=== PATIENT | female | born 1980 | race Caucasian/White ===

== ENCOUNTER 2018-05-01 03:03 | Emergency (ER) | payer SELFPAY ==
[2018-05-01] MEDS ORDERED: NACL 0.9% 1000 ML 1,000 ML IV ONE ×2 (03:55→09:59)
[2018-05-01] MEDS ORDERED: ZOFRAN IV ONE ×2 (03:56→13:48)
[2018-05-01 04:30] LABS: Basophils # (Auto) 0.1 K/mm3 (0.0-0.1); Basophils % (Auto) 1.1 % (0.0-1.8); Eosinophils # (Auto) 0.1 K/mm3 (0.0-0.4); Eosinophils % (Auto) 0.8 % (0.0-4.3); Hematocrit 40.7 % (30.3-42.9); Hemoglobin 13.5 gm/dl (10.1-14.3); Lymphocytes % (Auto) 30.6 % (13.4-35.0); Mean Corpuscular HGB Conc 33 % (30-34); Mean Corpuscular Hemoglobin 29 pg (28-32); Mean Corpuscular Volume 87 fl (79-97); Monocytes # (Auto) 0.8 K/mm3 (0.0-0.8); Monocytes % (Auto) 5.9 % (0.0-7.3); Platelet Count 304 K/mm3 (140-440); Red Blood Count 4.65 M/mm3 (3.65-5.03); Red Cell Distribution Width 13.5 % (13.2-15.2)
[2018-05-01 04:42] LABS: Alanine Aminotransferase 20 units/L (7-56); Albumin 3.9 g/dL (3.9-5); BUN/Creatinine Ratio 15; Blood Urea Nitrogen 12 mg/dL (7-17); Calcium 9.1 mg/dL (8.4-10.2); Hemolysis Index 25; Lipase 33 units/L (13-60)
[2018-05-01] MEDS ORDERED: ANTIVERT PO ONE (09:46)
--- NOTE | 2018-05-01 09:50 | Emergency Department Report ---
ED Dizziness HPI - General Chief Complaint: Nausea/Vomiting/Diarrhea Stated Complaint: SWEATING DIZZY AND SWEATING Time Seen by Provider: 05/01/18 09:43 Source: patient Mode of arrival: Ambulatory Limitations: No Limitations - History of Present Illness Initial Comments: 37-year-old female past medical history obesity presents with complaint of waking up abruptly at 2 AM feeling short of breath and dizzy and nauseous. Patient vomited several times. Denies any discrete chest pain or palpitations. Denies any recent head trauma. Denies fever or chills. Denies increased urinary frequency dysuria or hematuria. Patient adamantly denies any alcohol smoking cocaine or drug use otherwise. Patient is awake alert and oriented 3 and accompanied by . States she still feels very dizzy which she characterizes as both the room spinning and feeling off balance. Patient denies any active chest pain or palpitations at this time. Patient is fully lucid. Denies any recent head trauma. States that she had a slight from [place] 4 days ago. Denies any personal history of PE or DVT. Patient has a noticeable nystagmus when I interview her. She personal history of CVA or neurological disease. She states she was feeling fine up until approximately 2 AM when she woke up out of bed with the symptoms. Denies any change in symptoms with changes in position MD Complaint: dizziness Onset/Timin -: hour(s) Timing: sudden onset Description: sense of movement, "room spinning", lightheadedness History of Same: No History of Trauma: No Severity: moderate - Related Data Previous Rx's Medication Instructions Recorded Last Taken Type Meclizine [Antivert] 25 mg PO TID PRN #15 tablet 05/01/18 Unknown Rx Nitrofurantoin Monohyd/M-Cryst 100 mg PO BID #14 capsule 05/01/18 Unknown Rx [Macrobid 100 mg Capsule] Allergies Allergy/AdvReac Type Severity Reaction Status Date / Time No Known Allergies Allergy Unverified 05/01/18 03:54 ED Review of Systems ROS: Stated complaint: SWEATING DIZZY AND SWEATING Other details as noted in HPI Constitutional: denies: chills, fever Eyes: denies: eye pain, eye discharge, vision change ENT: denies: ear pain, throat pain Respiratory: denies: cough, shortness of breath, wheezing Cardiovascular: denies: chest pain, palpitations Endocrine: no symptoms reported Gastrointestinal: denies: abdominal pain, nausea, diarrhea Genitourinary: denies: urgency, dysuria, discharge Musculoskeletal: denies: back pain, joint swelling, arthralgia Skin: denies: rash, lesions Neurological: vertigo. denies: headache, weakness, paresthesias Psychiatric: denies: anxiety, depression Hematological/Lymphatic: denies: easy bleeding, easy bruising ED Past Medical Hx - Past Medical History Previous Medical History?: No - Surgical History Past Surgical History?: No - Social History Smoking Status: Never Smoker Substance Use Type: None - Medications Home Medications: Home Medications Medication Instructions Recorded Confirmed Last Taken Type Meclizine [Antivert] 25 mg PO TID PRN #15 tablet 05/01/18 Unknown Rx Nitrofurantoin Monohyd/M-Cryst 100 mg PO BID #14 capsule 05/01/18 Unknown Rx [Macrobid 100 mg Capsule] ED Physical Exam - General Limitations: No Limitations General appearance: alert, in no apparent distress - Head Head exam: Present: atraumatic, normocephalic - Eye Eye exam: Present: normal appearance, PERRL, EOMI, nystagmus (slight horizontal nystagmus on exam) - ENT ENT exam: Present: normal exam (tympanic membranes are normal bilaterally no signs of otitis media or externa), mucous membranes moist - Neck Neck exam: Present: normal inspection, full ROM (neck flexion and extension clinically intact no meningismus) - Respiratory Respiratory exam: Present: normal lung sounds bilaterally (lungs are clear to auscultation bilaterally). Absent: respiratory distress - Cardiovascular Cardiovascular Exam: Present: regular rate, normal rhythm, normal heart sounds. Absent: systolic murmur, diastolic murmur, rubs, gallop - GI/Abdominal GI/Abdominal exam: Present: soft (abdomen soft nontender nondistended on clinical exam), normal bowel sounds - Extremities Exam Extremities exam: Present: normal inspection - Back Exam Back exam: Present: normal inspection - Neurological Exam Neurological exam: Present: alert, oriented X3, CN II-XII intact, normal gait - Expanded Neurological Exam Expanded Patient oriented to: Present: person, place, time Cranial nerves: EOM's Intact: Normal, Nystagmus: Abnormal Right, Abnormal Left ( slight horizontal nystagmus with lateral eye movement to both left and right) Cerebellar function: Finger to Nose: Normal (H and has normal cerebellar testing including [id number] Romberg and heel to mehta. Can perform all movements without difficulty. No ataxia), Heel to Mehta: Normal, Romberg: Normal Sensory exam: Upper Extremity Light Touch: Normal, Lower Extremity Light Touch: Normal Motor strength exam: RUE: 5, LUE: 5, RLE: 5, LLE: 5 Best Eye Response (Marc): (4) open spontaneously Best Motor Response (Arcadia): (6) obeys commands Best Verbal Response (Arcadia): (5) oriented [place]cadia Total: 15 - Psychiatric Psychiatric exam: Present: normal affect, normal mood - Skin Skin exam: Present: warm, dry, intact, normal color. Absent: rash ED Course Vital Signs 05/01/18 05/01/18 05/01/18 03:44 09:59 10:06 Temperature 98.1 F Pulse Rate 76 89 Respiratory 18 18 18 Rate Blood Pressure 111/73 Blood Pressure 123/63 [Left] O2 Sat by Pulse 98 96 Oximetry 05/01/18 13:24 Temperature Pulse Rate 74 Respiratory 18 Rate Blood Pressure Blood Pressure 114/90 [Left] O2 Sat by Pulse 99 Oximetry ED Medical Decision Making - Lab Data Result diagrams: 05/01/18 04:03 05/01/18 04:03 - Medical Decision Making A/P: Dizziness, vertigo, asymptomatic bacteriuria 1-urinalysis shows large leukocytes and will treat empirically with Macrobid for asymptomatic bacteriuria, urine culture sent and this may be why patient became dizzy. She has no neurological deficits on clinical exam. Cranial nerves 2, 3, 4, 5, 6, 7, 8,10, 11, 12 intact on clinical exam, patient is fully lucid awake alert and oriented 3 conversant. Denies any upper or lower extremity paresthesias and has 5/5 strength in bilateral upper and lower extremities on clinical exam. 2-d-dimer slightly elevated. Context patient's recent 20+ hour car ride CTA performed. It is negative for PE. 3-vital signs have remained stable throughout ED stay 4- patient states she feels symptomatically better after IV hydration and dose of meclizine. 5- HEART score 0. Troponin negative, EKG sinus rhythm 6- follow-up with primary care 7- case discussed with Dr. Eugene before discharge Critical care attestation.: If time is entered above; I have spent that time in minutes in the direct care of this critically ill patient, excluding procedure time. ED Disposition Clinical Impression: Dizziness, Asymptomatic bacteriuria Disposition: - TO HOME OR SELFCARE Is pt being admited?: No Does the pt Need Aspirin: No Condition: Stable Instructions: Urinary Tract Infection in Women (ED), Vertigo (ED), Dizziness ( ED) Prescriptions: Meclizine [Antivert] 25 mg PO TID PRN #15 tablet PRN Reason: Vertigo Nitrofurantoin Monohyd/M-Cryst [Macrobid 100 mg Capsule] 100 mg PO BID #14 capsule Referrals: [facility] [Provider Group] - 3-5 Days Forms: Accompanied Note, Work/School Release Form(ED) Time of Disposition: 13:39
[2018-05-01 10:14] LABS: Bacteria,Urine 2+ /HPF (Negative); Bilirubin,Urine NEG (Negative); Blood,Urine NEG (Negative); Color,Urine Yellow (Yellow); Mucus,Urine 2+ /HPF; Protein,Urine <15 mg/dL mg/dL (Negative); Urobilinogen,Urine < 2.0 mg/dL (<2.0)
[2018-05-01 10:15] LABS: HCG Qualitative,Urine Negative (Negative)
--- NOTE | 2018-05-01 11:27 | Cat Scan Report ---
CT HEAD WITHOUT CONTRAST: HISTORY: Headache, dizziness, horizontal nystagmus. TECHNIQUE: Sequential 2.5mm CT images. COMPARISON: none. FINDINGS: Cerebral Parenchyma: Within normal limits. Cerebellum: Within normal limits. Brainstem: Within normal limits. Ventricles: Normal. Sella: Normal. Extra-axial spaces: Normal. Basal Cisterns: Normal. Intracranial Hemorrhage: None. Midline Shift: None. Calvarium: Normal. Sinuses: Normal. Mastoid Air Cells: Normal. Visualized Orbits: Normal. IMPRESSION: Cranial CT scan within normal limits.
--- NOTE | 2018-05-01 12:12 | Cat Scan Report ---
CTA CHEST: HISTORY: Shortness of breath. COMPARISON: none. TECHNIQUE: Helical CT in 1.25mm intervals following IV contrast. Pulmonary embolus protocol. Sagittal and coronal reformatted images. Rotational MIP images. FINDINGS: Contrast bolus is satisfactory. No pulmonary embolus is identified. Thyroid gland: Normal. Tracheobronchial tree: Normal. Esophagus: Normal. Heart: Normal. Pericardium: Normal. Mediastinum: Normal. Lung Root: normal. Pleural Spaces: Normal. Musculoskeletal: Normal. IMPRESSION: No evidence for pulmonary embolus. Unremarkable CT chest with contrast.
[2018-05-01 13:26] VITALS: BP 114/90
== END 2018-05-01 14:28 | disposition home or self-care (01) ==
LOC: ED 03:03
DX: R82.71 Bacteriuria (principal); R42 Dizziness and giddiness; R06.02 Shortness of breath; R11.0 Nausea
CPT/HCPCS: 36415; 70450; 71275; 80053; 81001; 81025; 82550; 82962; 83690; 84484; 84703; 85025; 85379; 93005; 93010; 96361; 96374; 96376; 99284; J2405; J7030; Q9967

== ENCOUNTER 2019-02-02 08:39 | Inpatient (IN) | payer OTHER ==
[2019-02-02] MEDS ORDERED: LACTATED RINGERS 1,000 ML IV ONE (09:38)
[2019-02-02] MEDS: LACTATED RINGERS 1,000 ML IV SCH ×2 (10:50→14:20)
[2019-02-02 11:05] LABS: Bacteria,Urine 1+ /HPF (Negative); Bilirubin,Urine NEG (Negative); Blood,Urine NEG (Negative); Color,Urine Yellow (Yellow); Mucus,Urine 1+ /HPF; Protein,Urine <15 mg/dL mg/dL (Negative); Urobilinogen,Urine < 2.0 mg/dL (<2.0)
[2019-02-02] MEDS ORDERED: PEPCID IV ONE (11:09)
[2019-02-02] MEDS ORDERED: REGLAN IV ONE (11:09)
[2019-02-02] MEDS ORDERED: BICITRA PO ONE (11:09)
[2019-02-02] MEDS ORDERED: PITOCin/NS 20 UNIT/1000ML DRIP 20 UNITS/1,000 ML BAG IV SCH ×2 (12:00→17:53)
[2019-02-02] MEDS ORDERED: ANCEF/STERILE WATER 2 GM/20 ML 2 GM/20 ML SYRINGE IV NR (12:00)
[2019-02-02] MEDS ORDERED: LACTATED RINGERS 1,000 ML IV SCH (12:00)
--- NOTE | 2019-02-02 12:33 | History and Physical Report ---
History of Present Illness Date of examination: 02/02/19 (previous c/s in labor) Date of admission: 02/02/19 08:40 History of present illness: EDC Confirmation: 02/17/2019 Gestational Age: 10 2/7 weeks Past History : 5 Term Births: 2 Premature Births: 1 Living Children: 3 Para: 3 Mult. Births: 0 Prev : 1 Prev. attempt? 0 Aborta: 1 Elect. Ab: 0 Spont. Ab: 1 Ectopics: 0 # 1 Delivery date: 2000 Weeks Gestation: 36 labor: no Delivery type: Delivery location: [facility] Sex: Male weight: 5-2 Comments: pt states she had elevated blood pressure in labor # 2 Delivery date: 2005 Weeks Gestation: term Delivery type: Delivery location: [facility] Sex: Female weight: ? Comments: denies problems # 3 Delivery date: 2011 Weeks Gestation: term Delivery type: Delivery location: [facility] Sex: Male weight: ? Comments: NRFT rerason for c/s # 4 Delivery date: 2014 Weeks Gestation: early Delivery type: SAB Comments: denies problems Family History Summary: Mother (biol.) - Has Family History of Diabetes - Entered On: 07/25/2018 Sister (full) - Has Family History of Diabetes - Entered On: 07/25/2018 Social History: Patient is Smoking History: Patient has never smoked. 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 Infection History Hx of STD: none HIV Risk Eval: no Hepatitis B Risk Eval: low risk Personal hx. of genital herpes: no Partner hx. of genital herpes: no Rash, Viral, or Febrile illness since last LMP? no Varicella/Chicken Pox Status: Previous Disease TB Risk: no Genetic History ADVANCED MATERNAL AGE Congenital Heart Defect: Mom: no Dad: no Sergio Disease: Mom: no Dad: no Thalassemia Mom: no Dad: no Neural Tube Defect Mom: no Dad: no Down's Syndrome Mom: no Dad: no Amaury-Sachs Mom: no Dad: no Sickle Cell Disease/Trait Mom: no Dad: no Hemophilia Mom: no Dad: no Muscular Dystrophy Mom: no Dad: no Cystic Fibrosis Mom: no Dad: no Blanchard Chorea Mom: no Dad: no Mental Retardation Mom: no Dad: no Fragile X Mom: no Dad: no Other Genetic/Chromosomal Disorder Mom: no Dad: no Child w/other defect Mom: no Dad: no Enviromental Exposures Xray Exposure: no Medication, drug, or alcohol use since LMP: no Chemical/Other Exposure: no Exposure to Cat Liter: no Hx of Parvovirus (Fifth Disease): no Occupational Exposure to Children: none Active Medications: None Current Allergies (reviewed today): No known allergies Past History - Obstetrical History Expected Date of Delivery: 02/17/19 Actual Gestation: 37 Week(s) 6 Day(s) : 5 Para: 3 Hx # Term Pregnancies: 2 Number of Pregnancies: 1 Spontaneous Abortions: 1 Induced : 0 Number of Living Children: 3 Medications and Allergies Allergies Allergy/AdvReac Type Severity Reaction Status Date / Time No Known Allergies Allergy Unverified 05/01/18 03:54 Active Meds: Active Medications Lactated Ringer's (Lactated Ringers) 1,000 mls @ 125 mls/hr IV DIRECT JONY Last Admin: 02/02/19 10:50 Dose: 125 mls/hr Documented by: Cefazolin Sodium (Ancef/Sterile Water 2 Gm/20 Ml) 2 gm in 20 mls @ 80 mls/hr IV PREOP NR; Protocol Stop: 02/02/19 23:59 Lactated Ringer's (Lactated Ringers) 1,000 mls @ 2,250 mls/hr IV PREOP JONY Stop: 02/03/19 12:27 Oxytocin/Sodium Chloride (Pitocin/Ns 20 Unit/1000ml Drip) 20 units in 1,000 mls @ 0 mls/hr IV TITR JONY - Vital Signs Vital signs: Vital Signs Pulse BP 62 115/64 02/02/19 08:58 02/02/19 08:58 Temp Pulse Resp BP Pulse Ox 98.0 F 62 20 115/64 02/02/19 08:59 02/02/19 08:59 02/02/19 08:59 02/02/19 08:59 - Physical Exam Breasts: Positive: deferred Cardiovascular: Regular rate, Normal S1, Normal S2 Lungs: Positive: Clear to auscultation Abdomen: Positive: normal appearance, soft, normal bowel sounds. Negative: distention, tenderness Genitourinary (Female): Positive: normal external genitalia Vulva: both: normal Vagina: Positive: normal moisture. Negative: discharge Cervix: Negative: lesion, discharge Uterus: Positive: normal size, normal contour Adnexa: both: normal Anus/Rectum: Positive: normal perianal skin, heme negative. Negative: rectal mass, hemorrhoids Extremities: Positive: normal Deep Tendon Reflex Grade: Normal +2 - Obstetrical FHR: category 1 Uterine Contraction Monitor Mode: External Cervical Dilatation: 3 (per spice room worker) Cervical Effacement Percentage: 50 station: -3 Uterine Contraction Pattern: Regular Uterine Tone Measurement Phase: Resting Uterine Contraction Intensity: Moderate Results Result Diagrams: 02/02/19 12:10 All other labs normal. HBsAg Screen Negative Negative *1 RPR Non Reactive Non Reactive *2 Rubella Antibodies, IgG 3.54 index Immune >0.99 *3 Non-immune <0.90 Equivocal 0.90 - 0.99 Immune >0.99 ABO Grouping O *4 Rh Factor Positive *5 Please note: Prior records for this patient's ABO / Rh type are not available for additional verification. Antibody Screen Negative Negative *6 WBC 7.7 x10E3/uL 3.4-10.8 *7 RBC 4.16 x10E6/uL 3.77-5.28 *8 Hemoglobin 12.2 g/dL 11.1-15.9 *9 Hematocrit 35.8 % 34.0-46.6 *10 MCV 86 fL 79-97 *11 MCH 29.3 pg 26.6-33.0 *12 MCHC 34.1 g/dL 31.5-35.7 *13 RDW 14.6 % 12.3-15.4 *14 Platelets 262 x10E3/uL 150-379 *15 Neutrophils 64 % Not Estab. *16 Lymphs 29 % Not Estab. *17 Monocytes 6 % Not Estab. *18 Eos 1 % Not Estab. *19 Basos 0 % Not Estab. *20 ! Immature Cells <No Reported Value> *21 Neutrophils (Absolute) 4.9 x10E3/uL 1.4-7.0 *22 Lymphs (Absolute) 2.2 x10E3/uL 0.7-3.1 *23 Monocytes(Absolute) 0.5 x10E3/uL 0.1-0.9 *24 Eos (Absolute) 0.1 x10E3/uL 0.0-0.4 *25 Baso (Absolute) 0.0 x10E3/uL 0.0-0.2 *26 ! Immature Granulocytes 0 % Not Estab. *27 ! Immature Grans (Abs) 0.0 x10E3/uL 0.0-0.1 *28 ! NRBC <No Reported Value> *29 Hematology Comments: <No Reported Value> *30 Tests: (2) Panel [id number] ([id number]) HIV Screen 4th Generation wRfx Non Reactive Non Reactive *31 Tests: (3) HCV Ab w/Rflx to Verification ([id number]) ! HCV Ab <0.1 s/co ratio 0.0-0.9 *32 Tests: (4) Comment: ([id number]) ! Comment: SPRCS *33 Non reactive HCV antibody screen is consistent with no HCV infection, unless recent infection is suspected or other evidence exists to indicate HCV infection. Tests: (5) Urine Culture, Routine ([id number]) Urine Culture, Routine Final report *34 Tests: (6) Result ([id number]) ! Result 1 No growth *35 Assessment and Plan 38yo in active labor Previous caesarean section aware Orders in EMR L&D charge nurse notified
[2019-02-02 12:34] LABS: Basophils % (Auto) 0.4 % (0.0-1.8); Eosinophils % (Auto) 0.5 % (0.0-4.3); Hematocrit 33.2 % (30.3-42.9); Hemoglobin 11.1 gm/dl (10.1-14.3); Lymphocytes # (Auto) 1.7 K/mm3 (1.2-5.4); Lymphocytes % (Auto) 25.8 % (13.4-35.0); Mean Corpuscular HGB Conc 33 % (30-34); Mean Corpuscular Volume 85 fl (79-97); Monocytes # (Auto) 0.3 K/mm3 (0.0-0.8); Monocytes % (Auto) 5.3 % (0.0-7.3); Platelet Count 252 K/mm3 (140-440); Red Blood Count 3.92 M/mm3 (3.65-5.03); Red Cell Distribution Width 13.9 % (13.2-15.2)
[2019-02-02] MEDS ORDERED: NARCAN 0.4 MG/1 ML IV PRN ×2 (14:19→17:53)
[2019-02-02] MEDS ORDERED: DILAUDID IV PRN (14:19)
[2019-02-02] MEDS ORDERED: PHENERGAN PO PRN (14:19)
[2019-02-02] MEDS ORDERED: PHENERGAN PR PRN (14:19)
--- NOTE | 2019-02-02 14:19 | Anesthesia Day of Surgery ---
Anesthesia Day of Surgery - Day of Surgery Patient Examined: Yes Patient H&P Reviewed: Yes Patient is NPO: Yes Beta Blockers: No Cardiac Clearance: No Pulmonary Clearance: No Shakir's Test: N/A
--- NOTE | 2019-02-02 14:19 | Anesthesia Consultation ---
Anesthesia Consult and Med Hx - Airway Anesthetic Teeth Evaluation: Good ROM Head & Neck: Adequate Mental/Hyoid Distance: Adequate Mallampati Class: Class II Intubation Access Assessment: Probably Good - Pulmonary Exam CTA: Yes - Cardiac Exam Cardiac Exam: RRR - Pre-Operative Health Status ASA Pre-Surgery Classification: ASA2 Proposed Anesthetic Plan: Spinal - Pulmonary Hx Smoking: No Hx Asthma: No Hx Respiratory Symptoms: No SOB: No COPD: No Home Oxygen Therapy: No Hx Pneumonia: No Hx Sleep Apnea: No - Cardiovascular System Hx Hypertension: Yes (hx with 1st ) Hx Coronary Artery Disease: No Hx Heart Attack/AMI: No Hx Angina: No Hx Percutaneous Transluminal Coronary Angioplasty (PTCA): No Hx Cardia Arrhythmia: No Hx Pacemaker: No Hx Internal Defibrillator: No Hx Valvular Heart Disease: No Hx Heart Murmur: No Hx Peripheral Vascular Disease: No - Central Nervous System Hx Neuromuscular Disorder: No Hx Seizures: No CVA: No Hx Back Pain: No Hx Psychiatric Problems: No - Gastrointestinal Hx Ulcer: No Hx Gastroesophageal Reflux Disease: Yes - Endocrine Hx Renal Disease: No Hx End Stage Renal Disease: No Hx Cirrhosis: No Hx Liver Disease: No Hx Insulin Dependent Diabetes: No Hx Non-Insulin Dependent Diabetes: Yes (gestational) Hx Thyroid Disease: No Hx Hypothyroidism: No Hx Hyperthyroidism: No - Hematic Hx Anemia: No Hx Sickle Cell Disease: No - Other Systems Hx Alcohol Use: No Hx Substance Use: No Hx Cancer: No Hx Obesity: No
[2019-02-02] MEDS ORDERED: SUBLIMAZE ONE (14:26)
[2019-02-02] MEDS ORDERED: TORADOL ONE (15:39)
--- NOTE | 2019-02-02 16:10 | Post Anesthesia Evaluation ---
- Post Anesthesia Evaluation Patient Participated: Yes Airway Patent: Yes Stable Respiratory Function: Yes Nausea/Vomiting: No Temp > 96.8F: Yes Pain Manageable: Yes Adequeate Hydration: Yes Anesthesia Complications: No Block Receding Appropriately: Yes Patient on Ventilator: No
[2019-02-02] MEDS ORDERED: IBUPROFEN PO PRN (17:53)
[2019-02-02] MEDS ORDERED: MILK OF MAGNESIA PO PRN (17:53)
[2019-02-02] MEDS ORDERED: NACL 0.45% 1000 ML 1,000 ML IV SCH (17:53)
[2019-02-02] MEDS ORDERED: SODIUM CHLORIDE FLUSH SYRINGE 10 ML IV NR (17:53)
[2019-02-02] MEDS ORDERED: LANSINOH TP PRN (17:53)
[2019-02-02] MEDS ORDERED: MYLICON PO PRN (17:53)
--- NOTE | 2019-02-02 19:16 | Operative Report ---
Operative Report Operative Report: Date of procedure: 02/02/2019 Pre-operative diagnosis: Intrauterine at 38 weeks with previous stefani abebe section in active labor Post-operative diagnosis: Same Procedure name(s): Repeat low transverse section Surgeon: Radu Hawley MD Manager Title: Emely Gustafson CST Anesthesia: Spinal EBL: 800 mL Complications: Lacerated left uterine artery Findings: Patient with normal uterus tubes and ovaries bilaterally. Did have thin lower uterine segment. Female weight 5 lbs. 5 oz. Apgars 8 at 1 minute and 9 at 5 minutes. Specimen(s): None Procedure: The patient was brought to the operating room. A spinal was placed without any complications. She was then placed in left lateral tilt. Prepped and draped in the usual sterile manner. After testing for adequate anesthesia level, a Pfannenstiel incision was made through her previous scar. This incision was taken down to the fascia. The fascia was then nicked in the midline. This incision was extended out laterally with Handley scissors. The fascia was then sharply and bluntly from the underlying rectus muscles. The rectus muscles were bluntly and sharply . The peritoneum was then entered with the stroke belt sander operator's fingers. This incision was spread vertically with care not to damage the bladder below. The bladder flap was then formed sharply and bluntly with Metzenbaum scissors. The Spencer self-retaining tractor was then placed without any difficulty. A transverse incision was made in lower uterine segment. This incision was extended laterally with the operators fingers. The amniotic sac was then entered bluntly with the stroke belt sander operator's fingers. The infant was delivered from the vertex position. Bulb suction on the mother's abdomen. Cord was double clamped and cut. The was then passed to the nursery personnel who were in attendance. The above scores were given by the nursery personnel. The placenta was then bluntly removed. The uterus was then externalized and wiped clean the remaining products. At this time the uterine artery laceration was identified and repaired with O'Fenton O'Fenton stitch with good hemostasis The uterine incision was closed in layers. The first incision was closed in a locking manner using 0 Vicryl. This was followed by imbricating stitch also with 0 Vicryl. This closure was hemostatic. The bladder flap was copiously irrigated and found to be hemostatic. The pelvis was copiously irrigated and found to be hemostatic. The uterus was then placed back to the patient's abdomen. The retractors were removed. The rectus muscles were inspected and found to be hemostatic. The fascia was then closed in a running manner using 0 Vicryl. This incision was hemostatic irrigation Bovie. The skin was reapproximated with 4-0 Vicryl subcuticularly. The patient tolerated procedure well. Her urine was clear. The infant was admitted to the well baby nursery. The patient was accompanied to recovery room in good condition. Instrument count correct 3.
[2019-02-02] MEDS: TORADOL IV SCH (20:57)
[2019-02-03] MEDS: TORADOL IV SCH ×3 (02:26→14:00)
[2019-02-03] MEDS ORDERED: BOOSTRIX IM ONE (06:00)
--- NOTE | 2019-02-03 07:46 | Progress Note ---
Assessment and Plan patient doing well, no complaints. lochia scant, fundus firm, VSSAF, H&H drawn but not yet resulted. patient denies any s/s anemia. Continue current postop pathway. - Patient Problems (1) delivery delivered Current Visit: Yes Status: Acute Subjective - Subjective Date of service: 02/03/19 Principal diagnosis: postop day #1 s/p repeat c/s Patient reports: appetite normal, voiding normally, pain well controlled, flatus, ambulating normally, no dizzy ambulation, no nauseated : doing well, nursing well Objective - Vital Signs Latest vital signs: Vital Signs Temp Pulse Resp BP BP Pulse Ox 02/03/19 05:04 98.3 F 77 20 112/71 93 02/03/19 02:56 16 02/03/19 02:26 18 02/03/19 01:02 98.6 F 78 20 109/61 95 02/02/19 21:39 97.4 F L 66 20 101/59 96 02/02/19 21:27 18 02/02/19 20:57 20 02/02/19 17:25 97.7 F 49 L 20 02/02/19 17:05 59 L 20 121/58 100 02/02/19 17:00 97.7 F 46 L 20 122/60 100 02/02/19 16:55 46 L 20 117/56 100 02/02/19 16:50 46 L 20 122/60 100 02/02/19 16:45 40 L 18 123/70 100 02/02/19 16:35 50 L 18 128/72 100 02/02/19 16:30 97.8 F 47 L 18 124/71 100 02/02/19 16:20 48 L 18 121/68 100 02/02/19 16:15 49 L 17 118/69 100 02/02/19 16:10 50 L 17 115/63 100 02/02/19 16:05 97.9 F 54 L 18 115/63 100 02/02/19 12:37 98.6 F 55 L 18 122/67 02/02/19 08:59 98.0 F 62 20 115/64 02/02/19 08:58 62 115/64 Intake and Output 02/02/19 02/02/19 02/03/19 15:59 23:59 07:59 Intake Total 437.5 700 Output Total 400 Balance 437.5 300 Intake: IV 437.5 700 Lactated Ringers 1,000 ml 437.5 @ 125 mls/hr IV DIRECT JONY Rx#:[id number] Output: Urine 400 Indwelling Catheter 200 Other: Total, Output Amount 200 Weight 94.801 kg Estimated Blood Loss 800 - Exam Breasts: Present: normal, Cardiovascular: Present: Regular rate Lungs: Present: Clear to auscultation, Normal air movement Abdomen: Present: normal appearance, soft Vulva: both: normal Uterus: Present: normal, firm, fundal height at umbilicus Extremities: Present: normal Incision: Present: normal, dry, dressed (to be removed later today after shower)
[2019-02-03 08:36] LABS: Hemoglobin 9.2 gm/dl (10.1-14.3)
[2019-02-03] MEDS: FEOSOL PO SCH (12:45)
[2019-02-03] MEDS: NORCO 5/325 PO PRN (12:45)
[2019-02-03] MEDS: PRENATAL VITAMIN PO SCH (12:45)
[2019-02-04] MEDS: NORCO 5/325 PO PRN ×2 (03:34→10:11)
--- NOTE | 2019-02-04 06:13 | Discharge Summary ---
Providers - Providers Date of Admission: 02/02/19 08:40 Date of discharge: 02/04/19 (pt desires d/c) Attending physician: MARGRET CORDOBA 02/02/19 17:53 Consult to Insulation Power Unit Tender [CONS] Routine Reason For Exam: Primary care physician: MARGRET CORDOBA Hospitalization Reason for admission: active labor, section Procedure: repeat low transverse Episiotomy: none Laceration: none Incision: normal, dry, intact Other procedures: none complications: none Discharge diagnosis: IUP at term delivered [facility] baby: female Hospital course: pt presented in active labor @ 38 weeks previous c/s X 2 uncomplicated repeat section Pt awake caring for NB Requests d/c VSS FF below umb lochia scant Incision D&I H&H 07/24 drop r/t blood loss from surgery Pt w/o S/SX of anemia Doing well s/p r c/s. P: d/c today with instructions RTO 1 week incision check Pt desires tubal ligation for BC. Condition at discharge: Good Disposition: DC- TO HOME OR SELFCARE - Discharge Diagnoses (1) delivery delivered Status: Acute Comment: RTO 1 week postop care Plan - Discharge Medications Prescriptions: Ferrous Sulfate [Feosol 325 MG tab] 325 mg PO BID #60 tablet Ibuprofen [Motrin 800 MG tab] 800 mg PO Q6H PRN #30 tablet PRN Reason: Pain oxyCODONE /ACETAMINOPHEN [Percocet 5/325 mg] 1 - 2 tab PO Q4H PRN #20 tablet PRN Reason: Pain, Moderate - Provider Discharge Summary Activity: routine, no sex for 6 weeks, no heavy lifting 4 weeks, no strenuous exercise Diet: routine Instructions: routine Additional instructions: [] Smoking cessation referral if applicable(refer to patient education folder for contact #) [] Refer to [facility]'s [facility] Booklet Call your doctor immediately for: * Fever > 100.5 * Heavy vaginal bleeding ( >1 pad per hour) * Severe persistent headache * Shortness of breath * Reddened, hot, painful area to leg or breast * Drainage or odor from incision. * Keep incision clean and dry at all times and follow doctor's instructions regarding bathing/showering - Follow up plan Follow up: MARGRET CORDOBA MD [Primary Care Provider] - 7 Days (Congratulations! Please call [phone] to schedule your postoperative visit in 1 week. Take medications as prescribed. Call with any concerns.)
[2019-02-04] MEDS: PRENATAL VITAMIN PO SCH (09:51)
[2019-02-04] MEDS: FEOSOL PO SCH (09:51)
[2019-02-04 15:34] VITALS: BP 114/67
== END 2019-02-04 17:00 | disposition home or self-care (01) | DRG 765 ==
LOC: TRG 08:39 → APU 08:40 → TRG 08:41 → OB 17:25
PROVIDERS: ADMIT Obstetrics & Gynecology; ATTEND Obstetrics & Gynecology
PROC: 10D00Z1 Extraction of Products of Conception, Low, Open Approach (ICD-10-PCS; principal; 2019-02-02)
PROC: 04QY0ZZ Repair Lower Artery, Open Approach (ICD-10-PCS; 2019-02-02)
PROC: 3E0234Z Introduction of Serum, Toxoid and Vaccine into Muscle, Percutaneous Approach (ICD-10-PCS; 2019-02-03)
DX: O34.211 Maternal care for low transverse scar from previous cesarean delivery (principal); N99.71 Accidental puncture and laceration of a genitourinary system organ or structure during a genitourinary system procedure; Z3A.38 38 weeks gestation of pregnancy; Z37.0 Single live birth; Z23 Encounter for immunization; Z83.3 Family history of diabetes mellitus; Y83.8 Other surgical procedures as the cause of abnormal reaction of the patient, or of later complication, without mention of misadventure at the time of the procedure; Y92.234 Operating room of hospital as the place of occurrence of the external cause; O90.89 Other complications of the puerperium, not elsewhere classified
CPT/HCPCS: 36415; 81001; 82947; 82962; 85014; 85018; 85025; 86850; 86900; 86901; 90471; 90715; G0378; A6250; C1765; J0690; J1885; J2590; J2765; J3010; J7120